=== PATIENT | female | born 2000 | race American Indian/Alaskan Native ===

== ENCOUNTER 2020-07-05 13:52 | Outpatient (CLI) | payer OTHER ==
--- NOTE | 2020-07-05 15:34 | XRay Report ---
XR humerus 2+V LT INDICATION / CLINICAL INFORMATION: PAIN IN LEFT ARM. COMPARISON: None available. FINDINGS: Linear foreign object seen along the medial distal left arm. No acute fracture. Normal alignment. J oint spaces are preserved. No destructive osseous lesion or suspicious periosteal reaction. Impression: 1. Nonspecific linear foreign object seen along the medial left arm which could be related to implant ed control device. Correlate clinically. Signer Name: Davidson Hughes MD Signed: 07/05/2020 3:30 PM Workstation Name: [id number]
== END 2020-07-05 13:53 | disposition home or self-care (01) ==
LOC: XRAY 13:52
PROVIDERS: ATTEND Obstetrics & Gynecology
DX: M79.602 Pain in left arm (principal)